=== PATIENT | female | born 1935 | race Caucasian/White ===

== ENCOUNTER 2019-01-06 16:07 | Inpatient (IN) | payer BC ==
[~2019-01-06] VITALS: Ht 175.3 cm; Wt 68.0 kg
[~2019-01-06 16:07] MED LIST: ASPIRIN EC81 M1 PO; COLACE CLEAR50 MG PO; DILTIAZEM ER120 M1; GLUCOPHAGE1000 MG; LOPRESSOR25; LOSARTAN-HCTZ1 EACH; MACROBID 100 M100 M3 PO; PRAVACHOL40 MG PO; ZOFRAN 4 MG ORAL4 MG PO
[2019-01-06 16:09] VITALS: BP 148/75
[2019-01-06] MEDS ORDERED: CLOBETASOL PROP15 GM TOP (16:17)
[2019-01-06 16:44] LABS: ABSOLUTE LYMPHOCYTES 1.3 thou/uL (0.8-5.3); ABSOLUTE MONOCYTES 0.3 thou/uL (0.0-1.2); ABSOLUTE NEUTROPHILS 5.3 thou/uL (1.6-8.1); BASOPHILS 0.3 %; EOSINOPHILS 0.4 %; HEMATOCRIT 26.2 % (37.0-47.0); HEMOGLOBIN 9.3 gm/dL (12.0-15.0); LYMPHOCYTES 18.4 %; MCH 46.4 pg (26.0-34.0); MCHC 35.6 g/dL (28.0-37.0); MCV 130.2 fL (80.0-100.0); MONOCYTES 4.8 %; MPV 7.3 fl. (7.2-11.1); NUCLEATED RBCS 0 /100WBC; PLATELET COUNT* 307 thou/uL (150-400); POLYS 76.1 %; RBC 2.01 mil/uL (4.20-5.00); RDW-CV 16.5 % (10.5-14.5)
[2019-01-06 16:52] LABS: CREATININE 1.2 mg/dL (0.6-1.3); POTASSIUM 3.7 mmol/L (3.5-5.1)
[2019-01-06 17:02] LABS: ALBUMIN 3.3 g/dL (3.4-5.0); TOTAL BILIRUBIN 1.2 mg/dL (<0.1-1.0); TOTAL PROTEIN 6.4 g/dL (6.4-8.2)
[2019-01-06 17:23] LABS: PLATELET ESTIMATE ADEQUATE
[2019-01-06 17:24] LABS: ANISOCYTOSIS 2+; MACROCYTES 2+; POIKILOCYTOSIS 1+
[2019-01-06 18:45] LABS: URINE BILIRUBIN NEGATIVE (Negative); URINE BLOOD NEGATIVE (Negative); URINE CLARITY CLEAR; URINE COLOR YELLOW; URINE GLUCOSE-RANDOM NEGATIVE (Negative); URINE KETONES NEGATIVE (Negative); URINE PROTEIN NEGATIVE (Negative); URINE SPECIFIC GRAVITY 1.025 (1.005-1.030); URINE UROBILINOGEN 0.2 E.U./dl (0.2-1.0)
[2019-01-06 18:47] LABS: URINE LEUKOCYTES-REFLEX 2+ (Negative); URINE NITRITE-REFLEX POSITIVE (Negative)
[2019-01-06 18:58] LABS: BACTERIA-REFLEX >30 Many /HPF (None Seen); HYALINE CASTS 0-3 Few /LPF (None Seen); SQUAMOUS >10 Many /LPF (0-3)
[2019-01-06 18:59] LABS: CRYSTALS None Seen /LPF (None Seen); MUCUS None Seen strn/LPF (None Seen); URINE RBC 0-2 Rare /HPF (0-2)
[2019-01-06 20:27] VITALS: BP 153/67
[2019-01-06 21:00] VITALS: BP 130/60
[2019-01-07 05:23] LABS: HEMOGLOBIN 7.8 gm/dL (12.0-15.0); MCHC 35.4 g/dL (28.0-37.0); MCV 130.1 fL (80.0-100.0); RBC 1.69 mil/uL (4.20-5.00); RDW-CV 16.5 % (10.5-14.5); WBC 6.5 thou/uL (4.0-11.0)
[2019-01-07 05:32] LABS: CALCIUM 7.6 mg/dL (8.5-10.1); CREATININE 0.9 mg/dL (0.6-1.3); POTASSIUM 3.4 mmol/L (3.5-5.1)
--- NOTE | 2019-01-07 06:41 | NUR ---
PATIENT ARRIVED ON FLOOR FROM ER ABOUT 2029. PATIENT ADMISSION HISTORY AND ASSESSMENT WAS COMPLETED CHARTED. IV FLUIDS WERE STARTED AT 100 ML/HR. PATIENT IS UP STANDBY TO BEDSIDE COMMODE. BED ALARM IS ON FOR FALL PRECUATIONS. WILL CONTINUE TO MONITOR.
[2019-01-07 08:03] VITALS: BP 145/70
[2019-01-07 08:06] VITALS: BP 131/72; BP 81/49
--- NOTE | 2019-01-07 09:50 | EKG ---
[place] [address] ELECTROCARDIOGRAM REPORT Name: SHRAVAN PEÑA Room: [address] ADM IN M.R.#: [id number] Admission: 01/06/19 Attend Phys: Laura Euceda Discharge: Date of : 31 Report #: [id number] THIS REPORT FOR: //name// [facility] ED Test Date: 2019-01-06 Test Time: 16:20:01 Pat Name: SHRAVAN PEÑA Department: Room: [facility] Gender: F Machine Binding Folder: : 1935 Requested By: Winifred Jackson Order Number: [id number] MD: Mikey George Measurements Intervals [place] Rate: 91 P: 65 PA: 133 QRS: 56 QRSD: 86 T: -85 QT: 352 QTc: 434 Interpretive Statements Sinus rhythm Low voltage, precordial leads Borderline repolarization abnormality Compared to ECG 02/14/2012 19:58:11 Low QRS voltage now present Atrial premature complex(es) no longer present Electronically Signed On 01-07-2019 9:50:17 MAINTENANCE ENGINEER by Mikey George [email or web address] <ELECTRONICALLY SIGNED> By: Mikey George MD, FACC 01/07/19 0950 1620 1620 Mikey George MD, [facility] /EPI
--- NOTE | 2019-01-07 15:03 | NUR ---
ADIA met with pt and pt dtr and pt son to complete initial assessment, introduce self, and SW role. Pt has lived at home with dtr and dtr reports that pt seemingly weaker in the past few weeks. Pt did not walk with AD until recently; pt has RW and cane. Dr recommending SNF [facility]. ADIA discussed safe dc planning and pt and pt family in agreement with SNF preference of [facility]. SW faxed referral to [facility] SNF admissions. SW to continue to follow to assist with safe dc planning/SNF placement. [facility] ph [phone]
[2019-01-07 15:45] VITALS: BP 117/46
--- NOTE | 2019-01-07 16:29 | NUR ---
PT A&Ox4, FORGETFUL AT TIMES. UP STAND BY USING WALKER. IV PATENT, INFUSING. FREQUENTLY URINATING SMALL AMOUNTS. DENIED PAIN. DENIED NAUSEA. TOLERATING DIET. ACCU CHECK. FAMILY IN ROOM. CALL LIGHT WITHIN REACH. WILL CONTINUE TO MONITOR.
[2019-01-07 20:00] VITALS: BP 110/60
--- NOTE | 2019-01-08 05:32 | NUR ---
PATIENT SLEPT PART OF THE NIGHT. NEW IV WAS STARTED CHARTED. IV FLUIDS CONTINUE TO INFUSE. PATIENT HAD NO COMPLAINTS OF PAIN. PATIENT HAS VOIDED LESS FREQUENTLY THIS SHIFT. WILL CONTINUE TO MONITOR.
[2019-01-08 07:59] VITALS: BP 124/63
[2019-01-08] MEDS ORDERED: GLUCOPHAGE500 MG PO (08:14)
[2019-01-08] MEDS ORDERED: REMERON15 MG PO (08:14)
[2019-01-08] MEDS ORDERED: VITAMIN B-12500 MCG PO (08:14)
[2019-01-08] MEDS ORDERED: MACROBID 100 M100 MG PO (08:15)
[2019-01-08 16:21] VITALS: BP 130/85
--- NOTE | 2019-01-08 16:25 | NUR ---
PT A&Ox4, FORGETFUL. UP STAND BY USING WALKER. IV PATENT, SL. DENIED PAIN. DENIED N/V. TOLERATING DIET. BS CONTROLLED. ACCEPTED INTO [facility], PENDING INSURANCE AUTH. NO WORD FROM CASE MANAGEMENT IF IT HAS BEEN APPROVED OR NOT. FREQUENT URINATION. FALL PRECAUTIONS IN PLACE. CALL LIGHT WITHIN REACH. WILL CONTINUE TO MONITOR.
--- NOTE | 2019-01-08 16:58 | NUR ---
ADIA followed to assist with dc planning for today; ADIA faxed dc summary/orders to [facility] SNF admissions. ADIA spoke often to check in with Tracie in admissions at [facility] for update on status of insurance auth, not received as of now, if auth received after hours, Tracie to call nurses unit to arrange timing of transition to SNF. ADIA updated pt family. [facility] SNF ph [phone]
[2019-01-08 20:30] VITALS: BP 142/70
[2019-01-09 04:32] LABS: HEMOGLOBIN 7.6 gm/dL (12.0-15.0); MCH 45.3 pg (26.0-34.0); MCHC 34.6 g/dL (28.0-37.0); MCV 130.8 fL (80.0-100.0); MPV 7.3 fl. (7.2-11.1); RBC 1.68 mil/uL (4.20-5.00); RDW-CV 16.6 % (10.5-14.5); WBC 6.1 thou/uL (4.0-11.0)
[2019-01-09 04:46] LABS: CALCIUM 8.5 mg/dL (8.5-10.1); CREATININE 0.8 mg/dL (0.6-1.3); POTASSIUM 3.3 mmol/L (3.5-5.1)
--- NOTE | 2019-01-09 06:15 | NUR ---
PATIENT SLEPT MOST OF THE NIGHT. IV REMAINS SALINE LOCKED. PATIENT HAD NO COMPLAINTS OF PAIN. WILL CONTINUE TO MONITOR.
[2019-01-09 10:10] VITALS: BP 118/52
[2019-01-09 16:00] VITALS: BP 127/43; BP 145/63
--- NOTE | 2019-01-09 18:57 | NUR ---
PATIENT AWAKE IN BED. PATIENT AMBULATED WITH GAIT BELT, WALKER, AND ASSISTANCE IN ROOM AND TO COMMODE. ALL SAFETY MEASURES MAINTAINED. PATIENT DENIES FURTHER NEEDS/ QUESTIONS AT THIS TIME.
[2019-01-09 19:40] VITALS: BP 139/71
[2019-01-10 04:02] LABS: HEMATOCRIT 20.9 % (37.0-47.0); HEMOGLOBIN 7.1 gm/dL (12.0-15.0); MCH 45.1 pg (26.0-34.0); MCHC 33.9 g/dL (28.0-37.0); MCV 132.9 fL (80.0-100.0); MPV 7.3 fl. (7.2-11.1); RBC 1.57 mil/uL (4.20-5.00); RDW-CV 17.2 % (10.5-14.5)
[2019-01-10 04:10] LABS: CALCIUM 8.5 mg/dL (8.5-10.1); CREATININE 0.8 mg/dL (0.6-1.3); MAGNESIUM 1.4 mg/dL (1.8-2.4); POTASSIUM 4.2 mmol/L (3.5-5.1)
--- NOTE | 2019-01-10 04:10 | NUR ---
VSS. SEE MAR. SEE CHART. PROGRESSING TOWARDS GOALS. FALL PRECAUTIONS IN PLACE. HOURLY ROUNDING FOR SAFETY.
[2019-01-10 07:50] VITALS: BP 134/62
--- NOTE | 2019-01-10 18:31 | NUR ---
PATIENT RESTING IN BED. PATIEN TIS UP STANDBY ASSIST FOR TRANSFERS BUT GETS WEAK AND WINDED WITH WALKING. PATIENT DISCHARGE HELD TODAY PENDING INSURANCE AUTHORIZATION. PATIENT HAS [facility] APP[facility]. PATIENT DENIES ANY PAIN. PATIENT DENIES NAY NEEDS AT THIS TIME. CALL LIGHT WITHIN REACH.
[2019-01-10 20:00] VITALS: BP 136/58
--- NOTE | 2019-01-11 05:25 | NUR ---
PT SLEPT WELL WITHOUT COMPLAINTS. USING CALL LITE FOR SBA TO BSC TO VOID OVERNIGHT. [place]. BED ALARM ON FOR SAFETY, CALL LITE IN EASY REACH. HS ACCUCHECK 120, NO INSULIN INDICATED. NO LABS THIS MORNING. RFA SL. DNR. DC PLAN PENDING INSURANCE APPROVAL FOR SNF.
[2019-01-11 16:30] VITALS: BP 144/80
--- NOTE | 2019-01-11 17:25 | NUR ---
PT A&OX4 VSS. PT TRANSFERS SBA, GAIT STEADY. PT UP TO RECLINER WITH CHAIR ALARM INTERMITTENTLY THROUGHOUT SHIFT. PT UP TO COMMODE THROUGHOUT SHIFT WELL. PT REMAINS CONTINENT. PT RFA SALINE LOCKED, NO REDNESS/SWELLING AT SITE. PT IS ACCUCHECK, GLUCOSE INDICATED INSULIN X1 THIS SHIFT. PT CONTINUES TO TAKE METFORMIN TO CONTROL BLOOD GLUCOSE. PT USES CALL IGHT APPROPRIATELY. PT DENIES PAIN AT THIS TIME. NO C/O N/V/D. PT RESTING IN BED WITH CALL LIGHT IN REACH. WILL CONTINUE TO MONITOR.
[2019-01-11 20:00] VITALS: BP 155/65
[2019-01-12 04:39] LABS: HEMATOCRIT 20.9 % (37.0-47.0); HEMOGLOBIN 7.1 gm/dL (12.0-15.0); MCH 45.4 pg (26.0-34.0); MCV 133.5 fL (80.0-100.0); MPV 7.3 fl. (7.2-11.1); RBC 1.57 mil/uL (4.20-5.00); RDW-CV 16.7 % (10.5-14.5); WBC 5.5 thou/uL (4.0-11.0)
[2019-01-12 07:40] VITALS: BP 144/69
[2019-01-12 09:16] LABS: URINE BILIRUBIN NEGATIVE (Negative); URINE BLOOD NEGATIVE (Negative); URINE CLARITY CLEAR; URINE COLOR YELLOW; URINE GLUCOSE-RANDOM NEGATIVE (Negative); URINE KETONES NEGATIVE (Negative); URINE LEUKOCYTES-REFLEX 1+ (Negative); URINE NITRITE-REFLEX NEGATIVE (Negative); URINE PROTEIN NEGATIVE (Negative); URINE SPECIFIC GRAVITY 1.025 (1.005-1.030); URINE UROBILINOGEN 0.2 E.U./dl (0.2-1.0)
[2019-01-12 09:33] LABS: SQUAMOUS >10 Many /LPF (0-3); URINE WBC-REFLEX 6-15 Few /HPF (0-5)
[2019-01-12 09:34] LABS: URINE RBC 0-2 Rare /HPF (0-2)
[2019-01-12 09:37] LABS: CASTS None Seen /LPF (None Seen); CRYSTALS None Seen /LPF (None Seen); MUCUS 0-3 Light strn/LPF (None Seen)
[2019-01-12 16:07] VITALS: BP 136/73
--- NOTE | 2019-01-12 16:15 | NUR ---
PATIENT UP TO BSC WITH ASSISTANCE, PATIENT HAVING MULTIPLE VERY SMALL SOFT BM'S THIS SHIFT. VOIDING YELLOW URINE. IV REMAINS SL. FAIR APPETITE. NO COMPLAINTS OF PAIN.
[2019-01-12 21:04] VITALS: BP 141/68
--- NOTE | 2019-01-13 02:25 | NUR ---
PT SLEPT WELL THIS SHIFT, USING CALL LITE FOR SBA OOB TO BSC TO VOID SEVERAL TIMES OVERNIGHT. URINE CULTURE PENDING IN LAB. RFA SL IV, PO ABX GIVEN ORDERED. PT DENIES PAIN OR PROBLEMS. ANTICIPATING DISCHARGE TO SNF TOMORROW. CALL LITE IN EASY REACH, BED ALARM ON FOR SAFETY. REPORT GIVEN TO HARLAN SWENSON AT THIS TIME WHO WILL ASSUME CARE.
[2019-01-13 07:50] VITALS: BP 136/69
--- NOTE | 2019-01-13 13:44 | NUR ---
SW called [facility] to check on status of referral/insurance auth pending and left message for Tracie in admissions to return call to provide update on status. SW to continue to follow to assist with finalizing safe dc plan/transition to SNF.
[2019-01-13 16:00] VITALS: BP 137/55
--- NOTE | 2019-01-13 19:05 | NUR ---
ASSUMED CARE OF PATIENT AT APPROX 0730. ALERT AND ORIENTED X4. ASSESSMENT COMPLETED AND CHARTED. VSS ON ROOM AIR. NO COMPLAINTS OF PAIN OR SOA THIS SHIFT. PATIENT UP WITH ASSIST AND WALKER TO USE BEDSIDE COMMODE. NO OTHER COMPLAINTS THIS SHIFT. FALL PRECAUTIONS IN PLACE. CALL LIGHT WITHIN REACH. HOURLY ROUNDS COMPLETED. WILL CONTINUE WITH PLAN OF CARE.
[2019-01-13 21:15] VITALS: BP 102/47
--- NOTE | 2019-01-14 04:33 | NUR ---
PT A&O, FORGETFUL AT TIMES, BED ALARM ON FOR SAFETY. MEDS GIVEN ORDERED. NO C/O PAIN. PT UP TO BSC WITH STANDBY ASSIST. SLEEPING THROUGH THE NIGHT ON HOURLY ROUNDINGS. WILL CONTINUE TO MONITOR.
[2019-01-14 04:39] LABS: ABSOLUTE EOSINOPHILS 0.3 thou/uL (0.0-0.7); ABSOLUTE LYMPHOCYTES 0.9 thou/uL (0.8-5.3); ABSOLUTE MONOCYTES 0.5 thou/uL (0.0-1.2); ABSOLUTE NEUTROPHILS 2.9 thou/uL (1.6-8.1); BASOPHILS 0.8 %; EOSINOPHILS 6.2 %; HEMOGLOBIN 7.4 gm/dL (12.0-15.0); LYMPHOCYTES 19.5 %; MCHC 33.8 g/dL (28.0-37.0); MCV 130.1 fL (80.0-100.0); NUCLEATED RBCS 0 /100WBC; PLATELET COUNT* 235 thou/uL (150-400); POLYS 62.5 %; RBC 1.69 mil/uL (4.20-5.00); RDW-CV 17.4 % (10.5-14.5); WBC 4.7 thou/uL (4.0-11.0)
[2019-01-14 04:47] LABS: CREATININE 0.8 mg/dL (0.6-1.3); POTASSIUM 4.3 mmol/L (3.5-5.1)
[2019-01-14 04:49] LABS: % SATURATION 27 % (20-39); IRON 41 ug/dL (50-175)
[2019-01-14 05:49] LABS: HYPOCHROMASIA 2+; MACROCYTES 3+; PLATELET ESTIMATE ADEQUATE; POLYCHROMASIA 2+
[2019-01-14 05:50] LABS: ANISOCYTOSIS 2+; POIKILOCYTOSIS 1+
[2019-01-14 07:15] VITALS: BP 98/56
[2019-01-14 09:42] VITALS: BP 98/56
[2019-01-14] MEDS ORDERED: THERA M PLUS T1 EAC2 PO (10:05)
[2019-01-14] MEDS ORDERED: FOLIC ACID1 MG PO (10:05)
[2019-01-14] MEDS ORDERED: CARVEDILOL3.125 MG PO (10:05)
[2019-01-14] MEDS ORDERED: PRINIVIL5 MG PO (10:05)
--- NOTE | 2019-01-14 10:36 | EKG ---
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 : 1935 Requested By: Maria Alejandra Enciso Order Number: [id number] Vernon MD: Esa Skelton Measurements Intervals [place] Rate: 99 P: 54 [place]: 134 QRS: 19 QRSD: 96 T: 12 QT: 360 QTc: 462 Interpretive Statements Sinus rhythm with premature atrial contractions Minimal ST depression, lateral leads Compared to ECG 01/06/2019 16:20:01 ST (T wave) deviation now present Electronically Signed On 01-14-2019 10:36:19 CONSERVATOR ARTIFACTS by Esa Skelton [email or web address] <ELECTRONICALLY SIGNED> By: Esa Skelton MD, FACC 01/14/19 1036 1044 1044 Esa Skelton MD, [facility] /EPI
--- NOTE | 2019-01-14 10:37 | EKG ---
[place] [address] ELECTROCARDIOGRAM REPORT Name: SHRAVAN PEÑA Room: [address] ADM IN M.R.#: [id number] Admission: 01/06/19 Attend Phys: Laura Euceda Discharge: Date of : 31 Report #: [id number] THIS REPORT FOR: //name// [facility] Test Date: 2019-01-09 Test Time: 10:45:54 Pat Name: SHRAVAN PEÑA Department: Room: [address] Gender: F Electrical Parts Reconditioner: AT : 1935 Requested By: Maria Alejandra Enciso Order Number: [id number] Vernon MD: Esa Skelton Measurements Intervals [place] Rate: 104 P: 51 [place]: 132 QRS: 20 QRSD: 81 T: -53 QT: 356 QTc: 469 Interpretive Statements Sinus rhythm with premature atrial contractions Borderline repolarization abnormality Compared to ECG 01/06/2019 16:20:01 No significant changes noted Electronically Signed On 01-14-2019 10:36:41 DISPOSAL PLANT OPERATOR by Esa Skelton [email or web address] <ELECTRONICALLY SIGNED> By: Esa Skelton MD, [facility] 01/14/19 1036 1045 Esa Skelton MD, [facility] /EPI
--- NOTE | 2019-01-14 11:01 | NUR ---
HEARD BACK FROM [facility], THEY HAVE INSURANCE AUTH AND CAN ACCEPT PT TODAY. SET UP W/C VAN FOR 1230. UPDATED PT AND DTR/[place] OVER THE PHONE. NURSE HAS NUMBER TO CALL REPORT. ORDERS FAXED AND CHARTC COPIED
[2019-01-14 11:04] VITALS: BP 98/56
[2019-01-14 12:35] VITALS: BP 98/56
--- NOTE | 2019-01-14 12:36 | NUR ---
PT CHART COPIED. IV REMOVED. PT DRESSED AND BELONGINGS GATHERED. PT LEFT VIA WHEELCHAIR WITH NURSING STAFF TO SKILLED FACILITY. FALL RISK PRECAUTIONS IN PLACE. HOURLY ROUNDING COMPLETED.
[2019-01-14 12:40] VITALS: BP 98/56
== END 2019-01-14 12:40 | DRG 312 ==
LOC: M.ERS 16:07 → M.TBA-ER 19:12 → M.ORTHSURG 19:12
PROVIDERS: Family Medicine; Internal Medicine; Physician Assistant; ADMIT Family Medicine
DX: I95.1 Orthostatic hypotension (principal); E44.1 Mild protein-calorie malnutrition; N39.0 Urinary tract infection, site not specified; E87.2 Acidosis; R29.6 Repeated falls; E11.9 Type 2 diabetes mellitus without complications; I10 Essential (primary) hypertension; E78.5 Hyperlipidemia, unspecified; I25.10 Atherosclerotic heart disease of native coronary artery without angina pectoris; Z53.29 Procedure and treatment not carried out because of patient's decision for other reasons; K21.9 Gastro-esophageal reflux disease without esophagitis; D53.9 Nutritional anemia, unspecified; D51.9 Vitamin B12 deficiency anemia, unspecified; Z79.84 Long term (current) use of oral hypoglycemic drugs; Z91.81 History of falling; I25.2 Old myocardial infarction; Z95.5 Presence of coronary angioplasty implant and graft; Z88.0 Allergy status to penicillin; Z87.891 Personal history of nicotine dependence; Z79.899 Other long term (current) drug therapy; Z79.82 Long term (current) use of aspirin; Z68.22 Body mass index [BMI] 22.0-22.9, adult